=== PATIENT | female | born 1975 | race Caucasian/White ===

== ENCOUNTER 2017-08-25 22:55 | Emergency (ER) | payer OTHER ==
[~2017-08-25] VITALS: Ht 170.2 cm; Wt 71.2 kg
[2017-08-25 23:02] VITALS: TEMP 36.4; Ht 170.2 cm; Wt 71.2 kg
[2017-08-25] MEDS ORDERED: KETOROLAC TROMETHAMINE 30 MG/ML VIAL IV STA (23:07)
[2017-08-25 23:13] VITALS: O2SAT 99
[2017-08-25 23:43] LABS: BASO % 0.9 %; BASO ABS # 0.07 K/uL (0-0.2); COMPLETE YES; EOS % 1.7 %; HEMATOCRIT 36.2 % (37-47); IG% 0.3 %; LYMPH % 30.9 %; LYMPH ABS # 2.32 K/uL (1.2-3.4); MEAN CELL VOLUME 85.4 fL (80-100); MEAN CORPUSCULAR HEMOGLOBIN 27.8 pg (25-34); MEAN CORPUSCULAR HGB CONC 32.6 g/dl (32-36); MEAN PLATELET VOLUME 9.6 fL (7.4-10.4); MONO % 10.6 %; NEUT % 55.6 %; PLATELET COUNT 282 K/uL (130-400); RED BLOOD COUNT 4.24 M/uL (4.2-5.4); WHITE BLOOD COUNT 7.52 K/uL (4.8-10.8)
[2017-08-25 23:46] LABS: URINE APPEARANCE CLEAR (CLEAR); URINE BILIRUBIN NEG (NEG); URINE COLOR YELLOW; URINE NITRITE NEG (NEG); URINE SPECIFIC GRAVITY 1.019 (1.000-1.030); UROBILINOGEN NEG (NEG); ZZUR CULT IF INDIC CLEAN CATCH NO
[2017-08-25 23:50] LABS: MANUAL MICROSCOPIC REQUIRED? NO; REVIEW REQ? NO
[2017-08-26 00:10] LABS: ALB/GLOB RATIO 0.9 (0.9-2); ALKALINE PHOSPHATASE 55 U/L (45-117); ALT/SGPT 18 U/L (12-78); BLOOD UREA NITROGEN 16 mg/dl (7-18); BUN/CREATININE RATIO 16.5 (10-20); CALCIUM 8.3 mg/dl (8.5-10.1); CARBON DIOXIDE 25 mmol/L (21-32); CHLORIDE 107 mmol/L (98-107); GLUCOSE 79 mg/dl (70-99); SODIUM 137 mmol/L (136-145)
[2017-08-26 00:15] LABS: PREG INTERNAL NEGATIVE QC NEG CLEAR BACKGROUND; PREG INTERNAL POSITIVE QC POS CONTROL LINE
[2017-08-26] MEDS ORDERED: CEPH500C PO (01:57)
[2017-08-26] MEDS ORDERED: CEPHALEXIN 500MG HOME PACK 1 EA BTL PO ONE (02:00)
--- NOTE | 2017-08-26 02:01 | EMERGENCY ROOM VISIT NOTE ---
History First contact with patient: 23:02 Chief Complaint: PELVIC PAIN Stated Complaint: FEMALE PAIN AND BLEEDING History of Present Illness The patient is a 42 year old female who presents to the Emergency Room with complaints of light vaginal bleeding since IUD was placed Jun [address] [place]. Patient saw her DIRECTOR OF ONLINE MERCHANDISING doctor today and she cauterized a polyp on her cervix as she thought this what was causing her spotting. Patient states she's been having increasing pelvic pain for the past few days and noticed a bulge to her right inguinal area. Pain currently 7 out of 10. Nothing makes it better or worse. It does not radiate. no injury to the area. Patient complains of pain and discomfort to her vaginal area. Patient is unsure about possible risk for STI's. Patient denies chest pain, dyspnea, urinary frequency, urgency, dysuria, fever, chills, back pain. Review of Systems See HPI for pertinent positives & negatives. A total of 10 systems reviewed and were otherwise negative. Past Medical/Surgical History Orthopedic surgery Social History Smoking Status: Never Smoker Drug Use: none Marital Status: single Occupation Status: employed Current/Historical Medications Scheduled Cephalexin Monohydrate (Keflex), 500 MG PO QID Physical Exam Vital Signs Date Time Temp Pulse Resp B/P (MAP) Pulse Ox O2 Delivery O2 Flow Rate FiO2 08/26/17 01:05 78 18 115/59 99 Room Air 08/25/17 23:13 99 Room Air 08/25/17 23:02 36.4 77 16 121/74 99 Room Air Physical Exam VITALS: Vitals are noted on the nurse's note and reviewed by myself. Vital signs stable. GENERAL: pleasant female, in no acute distress, nondiaphoretic, well-developed well-nourished. SKIN: Capillary reflex less than 2 seconds. HEENT: Normocephalic. PERRLA. EOMI. Nares patent. Mucous membranes moist. Neck is supple without nuchal rigidity. HEART: Regular rate and rhythm without murmurs gallops or rubs. LUNGS: Clear to auscultation bilaterally without wheezes, rales or rhonchi. No retractions or accessory muscle use. ABDOMEN: Positive bowel sounds x 4. Normal tympanic percussion. Soft, nontender, without masses or organomegaly. Samano sign negative. No guarding or rebound tenderness. no CVA tenderness Exam: right inguinal lymph node enlargement, normal external female genitalia , IUD string visualized, no CMT or adnexal tenderness. Cultures taken and sent. Digital Media Associate present MUSCULOSKELETAL: No gross musculoskeletal defects. No pedal edema. No calf tenderness. NEURO: Patient was alert and oriented to person place and time. Normal sensation to light and sharp touch. No focal neurological deficits. Medical Decision & Procedures Laboratory Results 08/25/17 23:30 Red Blood Count 4.24, Mean Corpuscular Volume 85.4, Mean Corpuscular Hemoglobin 27.8, Mean Corpuscular Hemoglobin Concent 32.6, Mean Platelet Volume 9.6, Neutrophils (%) (Auto) 55.6, Lymphocytes (%) (Auto) 30.9, Monocytes (%) (Auto) 10.6, Eosinophils (%) (Auto) 1.7, Basophils (%) (Auto) 0.9, Neutrophils # (Auto ) 4.18, Lymphocytes # (Auto) 2.32, Monocytes # (Auto) 0.80, Eosinophils # (Auto ) 0.13, Basophils # (Auto) 0.07 08/25/17 23:30 Test 08/25/17 23:30 08/26/17 00:28 White Blood Count 7.52 K/uL (4.8-10.8) Red Blood Count 4.24 M/uL (4.2-5.4) Hemoglobin 11.8 g/dL (12.0-16.0) Hematocrit 36.2 % (37-47) Mean Corpuscular Volume 85.4 fL (80-100) Mean Corpuscular Hemoglobin 27.8 pg (25-34) Mean Corpuscular Hemoglobin Concent 32.6 g/dl (32-36) Platelet Count 282 K/uL (130-400) Mean Platelet Volume 9.6 fL (7.4-10.4) Neutrophils (%) (Auto) 55.6 % Lymphocytes (%) (Auto) 30.9 % Monocytes (%) (Auto) 10.6 % Eosinophils (%) (Auto) 1.7 % Basophils (%) (Auto) 0.9 % Neutrophils # (Auto) 4.18 K/uL (1.4-6.5) Lymphocytes # (Auto) 2.32 K/uL (1.2-3.4) Monocytes # (Auto) 0.80 K/uL (0.11-0.59) Eosinophils # (Auto) 0.13 K/uL (0-0.5) Basophils # (Auto) 0.07 K/uL (0-0.2) RDW Standard Deviation 47.3 fL (36.4-46.3) RDW Coefficient of Variation 15.1 % (11.5-14.5) Immature Granulocyte % (Auto) 0.3 % Immature Granulocyte # (Auto) 0.02 K/uL (0.00-0.02) Urine Color YELLOW Urine Appearance CLEAR (CLEAR) Urine pH 5.0 (4.5-7.5) Urine Specific [place] 1.019 (1.000-1.030) Urine Protein NEG (NEG) Urine Glucose (UA) NEG (NEG) Urine Ketones NEG (NEG) Urine Occult Blood 2+ (NEG) Urine Nitrite NEG (NEG) Urine Bilirubin NEG (NEG) Urine Urobilinogen NEG (NEG) Urine Leukocyte Esterase SMALL (NEG) Urine WBC (Auto) 5-10 /hpf (0-5) Urine RBC (Auto) 10-30 /hpf (0-4) Urine Hyaline Casts (Auto) 1-5 /lpf (0-5) Urine Epithelial Cells (Auto) 10-20 /lpf (0-5) Urine Bacteria (Auto) NEG (NEG) Anion Gap 5.0 mmol/L (3-11) Est Creatinine Clear Calc Drug Dose 70.6 ml/min Estimated GFR () 79.9 Estimated GFR (Non- 69.0 BUN/Creatinine Ratio 16.5 (10-20) Calcium Level 8.3 mg/dl (8.5-10.1) Total Bilirubin 0.3 mg/dl (0.2-1) Aspartate Amino Transf (AST/SGOT) U/L (15-37) Alanine Aminotransferase (ALT/SGPT) 18 U/L (12-78) Alkaline Phosphatase 55 U/L (45-117) Total Protein 7.7 gm/dl (6.4-8.2) Albumin 3.7 gm/dl (3.4-5.0) Globulin 4.0 gm/dl (2.5-4.0) Albumin/Globulin Ratio 0.9 (0.9-2) Human Chorionic Gonadotropin, Qual NEG (NEG) Date/Time Source Procedure Growth Status 08/26/17 00:28 Cervix Swab Trichomonas Preparation - Final Complete Medications Administered Medications (Trade) Dose Ordered Sig/[facility] Route Start Time Stop Time Status Last Admin Dose Admin Ketorolac Tromethamine (Toradol Inj) 30 mg NOW STAT IV 08/25/17 23:07 08/25/17 23:10 DC 08/25/17 23:07 30 MG ED Course Prior records/ancillary studies reviewed. Triage Nursing notes reviewed. The patient's history was concerning for vaginal bleeding and abdominal pain. Differential diagnosis: Etiologies such as IUD complication, STI, ectopic , dysfunction uterine bleeding, bleeding dyscrasia, trauma, infection, as well as others were entertained. Physical examination: As above. Vitals signs revealed stable. ER treatment provided: toradol On reassessment the patient felt better. Diagnostic interpretation by me: The labs revealed mild anemia. Negative hCG. Urinalysis revealed no sign of infection. Vaginal cultures pending Imaging studies: Ultrasound shows IUD within the uterus and appears appropriate. Normal ovaries with blood flow. Limited abdominal ultrasound shows prominent lymph nodes. This appears to be consistent with pelvic pain since the IUD placement and is getting progressively worse with right inguinal lymph node enlargement. Patient was strongly encouraged to follow back up with her DIRECTOR OF ONLINE MERCHANDISING for her ongoing symptoms and possible removal of the IUD. Patient was started on antibiotics for the enlarged lymph node. Patient had no overt signs of STIs. Gram stain was negative for clue cells. Negative for trichomonas. GC chlamydia pending. Patient was advised to return to the ER immediately for severe pain, fevers, vomiting, worsening signs or symptoms or as needed. Patient did not have acute abdomen on exam. She is well-appearing. By the evaluation outlined above emergent etiologies such as bleeding dyscrasia, ectopic , trauma, as well as others were deemed relatively unlikely. The pt informed about the findings as listed above. All questions were answered and pleased with the treatment. Return instructions were outlined and the patient was discharged in stable condition. Outpatient prescription management: Keflex Referral: The patient was referred to her employee communications manager for follow-up in 2 to 3 days for a recheck of her current condition. Case reviewed with my Attending. Medical Decision as above Medication Reconcilliation Current Medication List: was personally reviewed by me Blood Pressure Screening Patient's blood pressure: Normal blood pressure Impression Primary Impression: Inguinal lymphadenopathy Additional Impressions: Pelvic pain Anemia Departure Information Prescriptions Cephalexin Monohydrate (Keflex) 500 Mg Cap 500 MG PO QID for 9 Days, #36 CAP Prov: Mirtha Garcia ., PATaneshaC 08/26/17 Referrals No Doctor, Assigned (PCP) Patient Instructions My [facility] Problem Qualifiers
[2017-08-26 02:08] VITALS: BP 111/66; PULSE 70; O2SAT 100
--- NOTE | 2017-08-26 06:46 | DIAGNOSTIC IMAGING REPORT ---
EXAMINATION: PELVIC ULTRASOUND (transabdominal and endovaginal scanning) CLINICAL HISTORY: pain/bleeding, IUD placed COMPARISON STUDY: FINDINGS: The uterus measured 10.2 x 5.5 x 6.3 cm. The endometrial stripe measured 9 mm. An IUD is visualized in the endometrial cavity. There is slight heterogeneity in uterine echotexture. Nabothian gland cyst is visualized.. The right ovary measured 30 x 11 x 12 mm. The left ovary measured 35 x 22 x 24 mm.. There is no ultrasonographic evidence of ovarian torsion. It should be noted that ovarian torsion can be present with normal Doppler ultrasonographic findings. There was no evidence of pathologic free pelvic fluid. IMPRESSION: 1. Slight heterogeneity in myometrial echotexture without evidence of focal mass 2. IUD within the endometrial cavity 3. No pathologic ovarian lesions identified Electronically signed by: Dontrell Saucedo M.D. 08/26/2017 6:45 AM Dictated Date/Time: 08/26/2017 6:43 AM
--- NOTE | 2017-08-26 07:01 | DIAGNOSTIC IMAGING REPORT ---
RIGHT INGUINAL ULTRASOUND HISTORY: Right lower quadrant pain and swelling. COMPARISON: None. FINDINGS: Sonography at site of palpable lump within the right groin demonstrated 2 morphologically benign right inguinal lymph nodes. The largest node measured 2.9 x 1.3 x 2.3 cm. IMPRESSION: Two prominent but morphologically benign right inguinal lymph nodes. Electronically signed by: Christian Davila M.D. 08/26/2017 7:00 AM Dictated Date/Time: 08/26/2017 6:56 AM
[2017-08-28 03:08] LABS: CHLAMYDIA TRACH RNA*** NOT DETECTED (NOT DETECTED); GC (NEIS GONORRHOEAE)RNA** NOT DETECTED (NOT DETECTED)
== END 2017-08-26 02:09 | disposition home or self-care (01) ==
LOC: C.EDB 22:56 → C.EDC 08-26 02:09
DX: R59.0 Localized enlarged lymph nodes (principal); D64.9 Anemia, unspecified; Z97.5 Presence of (intrauterine) contraceptive device; Z98.890 Other specified postprocedural states

== ENCOUNTER → 2017-10-16 | Outpatient (CLI) | payer OTHER | END | disposition home or self-care (01) | LOC: C.LABSPEC 11:11 | PROVIDERS: ATTEND Physician Assistant | DX: N89.8 Other specified noninflammatory disorders of vagina (principal) ==

== ENCOUNTER → 2017-11-10 | Outpatient (CLI) | payer OTHER | END | disposition home or self-care (01) | LOC: C.LABSPEC 17:32 | PROVIDERS: ATTEND Obstetrics & Gynecology | DX: N89.8 Other specified noninflammatory disorders of vagina (principal) ==

== ENCOUNTER → 2017-12-11 | Outpatient (CLI) | payer OTHER ==
[~2017-12-11] MED LIST: CEFD1CAP14 PO; DOXY100C PO; IBUP-1050 PO
--- NOTE | 2017-12-11 11:18 | DIAGNOSTIC IMAGING REPORT ---
LEFT FOOT 3 VIEWS CLINICAL HISTORY: Left foot pain. FINDINGS: 3 views of the left foot are obtained. No prior studies are available for comparison at the time of dictation. The skeletal structures are well mineralized. No fracture is seen. The joint spaces of the foot are well-maintained. A small os naviculari is incidentally noted. There is a plantar calcaneal enthesophyte. An os trigonum is also identified. The overlying soft tissues are within normal limits. IMPRESSION: No acute bony abnormality is identified in the left foot. Electronically signed by: Flip Gibson M.D. 12/11/2017 11:16 AM Dictated Date/Time: 12/11/2017 11:15 AM
== END | disposition home or self-care (01) ==
LOC: C.RAD1850 10:39
PROVIDERS: ATTEND Physician Assistant
DX: M79.672 Pain in left foot (principal)

== ENCOUNTER 2017-12-14 19:41 | Emergency (ER) | payer OTHER ==
[~2017-12-14] VITALS: Ht 170.2 cm; Wt 69.4 kg
[2017-12-14 20:09] VITALS: TEMP 36.8; Ht 170.2 cm; Wt 69.4 kg
[2017-12-14 20:33] LABS: BASO % 0.6 %; BASO ABS # 0.03 K/uL (0-0.2); EOS % 1.5 %; EOS ABS # 0.08 K/uL (0-0.5); HEMATOCRIT 39.5 % (37-47); HEMOGLOBIN 13.1 g/dL (12.0-16.0); IG# 0.01 K/uL (0.00-0.02); LYMPH % 41.8 %; LYMPH ABS # 2.26 K/uL (1.2-3.4); MEAN CELL VOLUME 88.2 fL (80-100); MEAN CORPUSCULAR HEMOGLOBIN 29.2 pg (25-34); MEAN CORPUSCULAR HGB CONC 33.2 g/dl (32-36); MEAN PLATELET VOLUME 9.5 fL (7.4-10.4); MONO % 7.9 %; MONO ABS # 0.43 K/uL (0.11-0.59); PLATELET COUNT 270 K/uL (130-400); RED CELL DISTRIBUTION WIDTH CV 14.1 % (11.5-14.5); RED CELL DISTRIBUTION WIDTH SD 46.2 fL (36.4-46.3); WHITE BLOOD COUNT 5.41 K/uL (4.8-10.8)
[2017-12-14 20:54] LABS: ALBUMIN 3.8 gm/dl (3.4-5.0); CALCIUM 8.5 mg/dl (8.5-10.1); CREATININE 0.88 mg/dl (0.60-1.20); POTASSIUM 3.8 mmol/L (3.5-5.1)
[2017-12-14 20:57] LABS: TOTAL PROTEIN 6.8 gm/dl (6.4-8.2)
[2017-12-14] MEDS ORDERED: SODIUM CHLORIDE 0.9% 1000ML 1,000 ML IV STA (22:02)
--- NOTE | 2017-12-14 22:07 | EMERGENCY ROOM VISIT NOTE ---
History Report prepared by Segun: Leo Samuel Under the Supervision of: Dr. Adam Wagner M.D. First contact with patient: 21:53 Chief Complaint: REFERRED BY DOCTOR Stated Complaint: BACK PAIN,RECURRING INFECTION History of Present Illness The patient is a 42 year old female who presents to the Emergency Room with pelvic pain. Worsening last few days. Associated with right groin pain and low back discomfort. Notes fatigue, mild headache, low grade fevers, nausea, lack of appetite. Just started period thus some mild vaginal bleeding. This is first menstrual cycle since Aug [address], removed and then given Depo shot. She has had 3 similar episode over last few months which responded quickly to abx though periodically return. She is an active person and notes this has significantly decreased her ability to be active. no medications taken for this recently. on no current abx. No syncope, leg swelling, cp, sob , rashes, vomiting, nor other symptoms. Follows with Railroad Track Inspector for this and unclear etiology of problems. Source of History: patient Onset: 5 months ago Position: pelvis Symptom Intensity: pain rated as 8/10 Timing: worsening Modifying Factors (Relieving): other (Ibuprofen) Associated Symptoms: + fevers, + headache, + nausea, + back pain, No vomiting Review of Systems See HPI for pertinent positives & negatives. A total of 10 systems reviewed and were otherwise negative. Family History FHx: diabetes mellitus Social History Smoking Status: Never Smoker Alcohol Use: occasionally Drug Use: none Marital Status: single Occupation Status: employed Current/Historical Medications Scheduled Cefdinir (Omnicef), 300 MG PO Q12H Doxycycline Hyclate (Vibramycin), 100 MG PO BID Scheduled PRN Ibuprofen (Advil), 200-600 MG PO Q4H PRN for Pain Allergies Coded Allergies: Sulfa Antibiotics (Verified Allergy, Severe, ANAPHYLAXIS, 12/14/17) Physical Exam Vital Signs Date Time Temp Pulse Resp B/P (MAP) Pulse Ox O2 Delivery O2 Flow Rate FiO2 12/15/17 00:30 72 18 105/73 97 12/15/17 00:16 74 98 12/15/17 00:11 73 97 12/15/17 00:00 111/71 12/14/17 23:41 73 18 98 12/14/17 23:30 116/76 12/14/17 23:11 72 98 12/14/17 23:09 119/69 12/14/17 22:18 65 20 133/73 98 Room Air 12/14/17 20:09 36.8 69 18 111/70 100 Room Air Physical Exam GENERAL: Patient is tired appearing and in minimal distress. EYES: No scleral icterus, unremarkable pupils. ENT: Mucous membranes moist, no nasal congestion. NECK: No masses appreciated, no meningismus, trachea is midline. RESPIRATORY: No dyspnea. Clear to auscultation and equal bilaterally. No wheeze , no rhonchi. CARDIOVASCULAR: Regular rate and rhythm. No murmurs, rubs, gallops appreciated. GASTROINTESTINAL: Mild super pubic tenderness to palpation. Vague tenderness of right inguinal canal. Abdomen soft, no peritonitis. Bowel sounds positive. No masses appreciated. BACK: No midline tenderness, no CVA tenderness EXTREMITIES: Normal motion all extremities, no cyanosis, no edema. NEUROLOGIC: Alert and oriented, no acute motor or sensory deficits, no focal weakness, cranial nerves grossly intact. SKIN: No rash, no jaundice, no diaphoresis. Medical Decision & Procedures ER Provider Diagnostic Interpretation: Radiology results and stated below per my review and radiologist interpretation: CT SCAN OF THE PELVIS WITH IV CONTRAST CLINICAL HISTORY: Right inguinal swelling. COMPARISON STUDY: Pelvic ultrasound dated 08/25/2017. TECHNIQUE: Following the IV administration of 119 cc of Optiray 320, CT scan of the pelvis is performed from the pelvic inlet to the proximal femora. Images are reviewed in the axial, sagittal, and coronal planes. IV contrast was administered without complication. A dose lowering technique was utilized adhering to the principles of ALARA. CT DOSE: 674.27 mGy.cm FINDINGS: The bladder is decompressed and grossly unremarkable. The uterus appears enlarged and heterogeneous. The ovaries are normal as visualized, noting bilateral follicles. Trace free fluid is seen in the cul-de-sac. There is no pelvic sidewall or inguinal lymphadenopathy. There is no CT evidence of inguinal hernia. The iliac vessels are patent bilaterally. The visualized bowel loops are normal in caliber. A normal appendix is identified. The bony pelvis is intact. No lytic or blastic lesion is identified. IMPRESSION: 1. No acute abnormality is identified in the pelvis. 2. There is no CT evidence of right inguinal hernia or lymphadenopathy. 3. The uterus appears mildly enlarged and heterogeneous. This was also seen by ultrasound on 08/25/2017. Follow-up with the patient's sfdc developer is recommended. 4. Trace free fluid in the cul-de-sac is likely within physiologic limits. Dictated: 12/14/2017 10:32 PM Transcribed: 12/14/2017 11:04 PM JOSE_Tien Laboratory Results 12/14/17 20:13 Red Blood Count 4.48, Mean Corpuscular Volume 88.2, Mean Corpuscular Hemoglobin 29.2, Mean Corpuscular Hemoglobin Concent 33.2, Mean Platelet Volume 9.5, Neutrophils (%) (Auto) 48.0, Lymphocytes (%) (Auto) 41.8, Monocytes (%) (Auto) 7.9, Eosinophils (%) (Auto) 1.5, Basophils (%) (Auto) 0.6, Neutrophils # (Auto) 2.60, Lymphocytes # (Auto) 2.26, Monocytes # (Auto) 0.43, Eosinophils # (Auto) 0.08, Basophils # (Auto) 0.03 12/14/17 20:13 Test 12/14/17 20:13 12/14/17 22:02 12/14/17 22:10 White Blood Count 5.41 K/uL (4.8-10.8) Red Blood Count 4.48 M/uL (4.2-5.4) Hemoglobin 13.1 g/dL (12.0-16.0) Hematocrit 39.5 % (37-47) Mean Corpuscular Volume 88.2 fL (80-100) Mean Corpuscular Hemoglobin 29.2 pg (25-34) Mean Corpuscular Hemoglobin Concent 33.2 g/dl (32-36) Platelet Count 270 K/uL (130-400) Mean Platelet Volume 9.5 fL (7.4-10.4) Neutrophils (%) (Auto) 48.0 % Lymphocytes (%) (Auto) 41.8 % Monocytes (%) (Auto) 7.9 % Eosinophils (%) (Auto) 1.5 % Basophils (%) (Auto) 0.6 % Neutrophils # (Auto) 2.60 K/uL (1.4-6.5) Lymphocytes # (Auto) 2.26 K/uL (1.2-3.4) Monocytes # (Auto) 0.43 K/uL (0.11-0.59) Eosinophils # (Auto) 0.08 K/uL (0-0.5) Basophils # (Auto) 0.03 K/uL (0-0.2) RDW Standard Deviation 46.2 fL (36.4-46.3) RDW Coefficient of Variation 14.1 % (11.5-14.5) Immature Granulocyte % (Auto) 0.2 % Immature Granulocyte # (Auto) 0.01 K/uL (0.00-0.02) Anion Gap 8.0 mmol/L (3-11) Est Creatinine Clear Calc Drug Dose 80.2 ml/min Estimated GFR () 93.3 Estimated GFR (Non- 80.5 BUN/Creatinine Ratio 12.1 (10-20) Calcium Level 8.5 mg/dl (8.5-10.1) Total Bilirubin 0.4 mg/dl (0.2-1) Aspartate Amino Transf (AST/SGOT) 11 U/L (15-37) Alanine Aminotransferase (ALT/SGPT) 16 U/L (12-78) Alkaline Phosphatase 42 U/L (45-117) Total Protein 6.8 gm/dl (6.4-8.2) Albumin 3.8 gm/dl (3.4-5.0) Globulin 3.0 gm/dl (2.5-4.0) Albumin/Globulin Ratio 1.3 (0.9-2) Lipase 188 U/L (73-393) Bedside Urine Test NEG (NEG) Urine Color YELLOW Urine Appearance TURBID (CLEAR) Urine pH 6.0 (4.5-7.5) Urine Specific [place] 1.010 (1.000-1.030) Urine Protein NEG (NEG) Urine Glucose (UA) NEG (NEG) Urine Ketones NEG (NEG) Urine Occult Blood 3+ (NEG) Urine Nitrite NEG (NEG) Urine Bilirubin NEG (NEG) Urine Urobilinogen NEG (NEG) Urine Leukocyte Esterase TRACE (NEG) Urine RBC 0-4 /hpf (0-4) Urine WBC 10-30 /hpf (0-5) Urine Epithelial Cells 10-20 /lpf (0-5) Urine Bacteria 1+ (NEG) Laboratory results as reviewed by me. Medications Administered Medications (Trade) Dose Ordered Sig/[facility] Route Start Time Stop Time Status Last Admin Dose Admin Sodium Chloride 1,000 ml @ 999 mls/hr Q1H1M STAT IV 12/14/17 22:02 12/14/17 23:02 DC 12/14/17 22:32 999 MLS/HR Ceftriaxone Sodium (Rocephin Inj) 1 gm NOW STAT IV 12/14/17 23:25 12/14/17 23:26 DC 12/14/17 23:55 1 GM Doxycycline Hyclate (Vibramycin Cap) 100 mg ONE ONCE PO 12/14/17 23:30 12/14/17 23:31 DC 12/14/17 23:54 100 MG ED Course 2153: The patient was evaluated in room C10. A complete history and physical exam was performed. 2315: I checked on the patient and she is resting. 2338: Discussed the patient's case with Dr. Rogers and he advised followup with outpatient clinic. 0045: Reevaluated the patient. Discussed results and discharge instructions: She verbalized understanding and agreement. The patient is ready for discharge. Medical Decision Differential: Appendicitis, Ovarian Torsion, PID, Tubo-ovarian Abscess, Intrauterine , Ectopic , Endometriosis, amongst other pathologies entertained. 42 yr old female with pelvic and right inguinal pain on and off last 4 months post IUD placement (and subsequent removal). Not affiliated with menstraul cycle and first period was just this last few days (depo shot) and this is 4th episode of symptoms. She has no fevers, wbc elevation nor evidence of sepsis but does have some systemic symptoms from this pain. As no previous imaging other than pelvic us went ahead with ct pelvis revealing no masses, abscess, nor other pelvic issue beyond heterogeneous uterus which may just be related to cylce, though given discomfort PID/endometritis is a concern. Already has been on keflex, flagyl amongst another unknown abx. She has no tried doxy nor omnicef. Given IV rocephin and will plan on continuing doxy as an outpatient. Previous cultures with Gardnerella and strep b though these aren't likely cause of issues and I feel repeat pelvic exam is also no reasonable. Originally discussed dual abx therapy, but given risk of side effects we discussed doing just doxy for 10 days and seeing data analyst in mean time. Reviewed with Railroad Track Inspector who agree not a clear cut case of what is going on and she will follow up with them. Medication Reconcilliation Current Medication List: was personally reviewed by me Blood Pressure Screening Patient's blood pressure: Normal blood pressure Blood pressure disposition: Did not require urgent referral Impression Primary Impression: Pelvic pain Additional Impression: Right groin pain Scribe Attestation The scribe's documentation has been prepared under my direction and personally reviewed by me in its entirety. I confirm that the note above accurately reflects all work, treatment, procedures, and medical decision making performed by me. Departure Information Dispostion Home / Self-Care Prescriptions Doxycycline Hyclate (VIBRAMYCIN) 100 Mg Cap 100 MG PO BID for 10 Days, #20 CAP Prov: Adam Wagner M.D. 12/15/17 Cefdinir (Omnicef) 300 Mg Cap 300 MG PO Q12H for 10 Days, #20 CAP Prov: Adam Wagner M.D. 12/15/17 Referrals Lizette Rogers M.D.(SECURITY DISPATCHER/OB) Patient Instructions My [facility] Additional Instructions Return if fevers, vomiting, passing out, worsening pain or other concerns. We are always here to help. You have been examined and treated today on an emergency basis only. This is not a substitute for, or an effort to provide, complete comprehensive medical care. It is impossible to recognize and treat all injuries or illnesses in a single emergency department visit. It is therefore important that you follow up closely with your Primary Physician. Call as soon as possible for an appointment so you can review all labs, imaging and other testing that you had. Return to Emergency Department, call 911 or seek immediate medical attention if you feel your symptoms are worsening. Problem Qualifiers
[2017-12-14] MEDS ORDERED: OPTIRAY 320 IV PRN (22:30)
--- NOTE | 2017-12-14 23:04 | DIAGNOSTIC IMAGING REPORT ---
CT SCAN OF THE PELVIS WITH IV CONTRAST CLINICAL HISTORY: Right inguinal swelling. COMPARISON STUDY: Pelvic ultrasound dated 08/25/2017. TECHNIQUE: Following the IV administration of 119 cc of Optiray 320, CT scan of the pelvis is performed from the pelvic inlet to the proximal femora. Images are reviewed in the axial, sagittal, and coronal planes. IV contrast was administered without complication. A dose lowering technique was utilized adhering to the principles of ALARA. CT DOSE: 674.27 mGy.cm FINDINGS: The bladder is decompressed and grossly unremarkable. The uterus appears enlarged and heterogeneous. The ovaries are normal as visualized, noting bilateral follicles. Trace free fluid is seen in the cul-de-sac. There is no pelvic sidewall or inguinal lymphadenopathy. There is no CT evidence of inguinal hernia. The iliac vessels are patent bilaterally. The visualized bowel loops are normal in caliber. A normal appendix is identified. The bony pelvis is intact. No lytic or blastic lesion is identified. IMPRESSION: 1. No acute abnormality is identified in the pelvis. 2. There is no CT evidence of right inguinal hernia or lymphadenopathy. 3. The uterus appears mildly enlarged and heterogeneous. This was also seen by ultrasound on 08/25/2017. Follow-up with the patient's rotoformer backtender is recommended. 4. Trace free fluid in the cul-de-sac is likely within physiologic limits. Dictated: 12/14/2017 10:32 PM Transcribed: 12/14/2017 11:04 PM JOSE_Tien Electronically signed by: Flip Gibson M.D. 12/14/2017 11:06 PM Dictated Date/Time: 12/14/2017 10:32 PM
[2017-12-14] MEDS ORDERED: IBUP-1050 PO (23:07)
[2017-12-14] MEDS ORDERED: CEFTRIAXONE SOD INJ 1 GM ADDVIAL IV STA (23:25)
[2017-12-14] MEDS ORDERED: DOXYCYCLINE HYCLATE 100 MG CAP PO ONE (23:30)
[2017-12-15] MEDS ORDERED: CEFD1CAP14 PO (00:23)
[2017-12-15] MEDS ORDERED: DOXY100C PO (00:23)
[2017-12-15 00:30] VITALS: BP 105/73; PULSE 72; O2SAT 97
== END 2017-12-15 00:47 | disposition home or self-care (01) ==
LOC: C.EDB 19:42 → C.EDC 12-15 00:47
DX: R10.2 Pelvic and perineal pain (principal); R10.30 Lower abdominal pain, unspecified; Z88.2 Allergy status to sulfonamides

== ENCOUNTER 2018-01-04 15:51 | Inpatient (IN) | payer OTHER ==
[~2018-01-04] VITALS: Ht 171.4 cm; Wt 69.0 kg
[2018-01-04] MEDS ORDERED: NURSING VERBAL MED ORDER ONE ×2 (16:00→23:45)
--- NOTE | 2018-01-04 16:08 | HISTORY & PHYSICAL EXAMINATION ---
DATE OF ADMISSION: 01/04/2018 CHIEF COMPLAINT: Heavy vaginal bleeding with clotting, weakness, and dizziness on standing. HISTORY OF PRESENT ILLNESS: The patient is a 42-year-old 4, para 2. She has had 2 spontaneous ABs. She has had a 2-year long history of heavy vaginal bleeding with clotting. She was originally followed by some doctors in [place], [place]. They tried a Mirena IUD, which they inserted in July 2017 and it had to be removed in September 2017 due to complications with infection and continued bleeding. She had a transvaginal ultrasound in my office on 12/29/2017 which showed a fibroid about 2 cm impinging on the endometrial canal and she also had a generalized enlargement of the uterus which was suggestive of adenomyosis. She has been bleeding for a month; however, it just started to be heavy on 12/31/2017 and she began to soak a pad in under an hour, passing large clots. She tried decreasing her activity. By Thursday, she was having some dizziness and nausea on standing. She called the office. She was seen in the office. A speculum exam revealed heavy vaginal bleeding, clothes were soaked. She was passing large clots. I sent her over for an emergency hemoglobin and hematocrit. Her hemoglobin was 9.4, hematocrit was 26.9. We discussed options and she is going to be admitted for total abdominal hysterectomy with preservation of ovaries due to heavy vaginal bleeding and symptomatic anemia. PAST MEDICAL HISTORY: She has 2 children in good health. ALLERGIES: SHE HAS A SERIOUS ALLERGIC REACTION TO SULFA WHICH CAUSES SHORTNESS OF BREATH. PAST SURGICAL HISTORY: She had a D and E for one of her miscarriages and she had a vein removed in her leg. MEDICAL HISTORY: No history of rheumatic fever, heart disease, heart murmur, diabetes, tuberculosis. SOCIAL HISTORY: No smoking. No alcohol intake. Works at [employer]. FAMILY HISTORY: Mother 64, in good health. Father 64, in good health. She has got 2 sisters and 1 brother in good health. REVIEW OF SYSTEMS: She does get migraine headaches which are worse with this heavy vaginal bleeding. No history of frequent or severe ear infections. PHYSICAL EXAMINATION: GENERAL: A well-developed, well-nourished white female, pale and weak in appearance. HEART: Had a regular rhythm. CHEST: Clear to auscultation and percussion. BREAST EXAMINATION: Normal. ABDOMEN: Soft and nontender. PELVIC EXAMINATION: Revealed a top normal-sized uterus. Speculum exam revealed heavy vaginal bleeding with clotting, clothes soaked. MUSCULOSKELETAL EXAMINATION: Revealed no calf tenderness. IMPRESSIONS OF THIS CASE: Symptomatic anemia, fibroid uterus, suspected adenomyosis, and a long history of heavy vaginal bleeding unresponsive to conservative therapy.
[2018-01-04] MEDS ORDERED: LACTATED RINGER'S 1000ML 1,000 ML IV SCH ×2 (16:14→16:15)
[2018-01-04] MEDS ORDERED: CEFOXITIN IV 2,000 MG in DEXTROSE 5% 50ML 50 ML IV SCH (16:15)
[2018-01-04 16:20] VITALS: BP 115/75; PULSE 84; TEMP 36.6; O2SAT 100
[2018-01-04 16:25] VITALS: BP 115/75; PULSE 84; TEMP 36.6; O2SAT 100; Ht 171.4 cm; Wt 69.0 kg
[2018-01-04] MEDS ORDERED: PATIENT'S ALLERGY INFO NEEDS ENTERED SCH (16:30)
[2018-01-04] MEDS ORDERED: PATIENT'S HEIGHT AND/OR WEIGHT NEEDED SCH (16:30)
[2018-01-04] MEDS ORDERED: MIDAZOLAM HCL 1 MG/ML 2ML VIAL ONE (18:13)
[2018-01-04] MEDS ORDERED: PROPOFOL IV EMULSION 10 MG/ML 20 ML VIAL ONE (18:13)
[2018-01-04] MEDS ORDERED: ONDANSETRON INJ 2 MG/ML 2 ML VIAL ONE ×3 (18:13→21:40)
[2018-01-04] MEDS ORDERED: ROCURONIUM BROMIDE 10 MG/ML 5 ML VIAL ONE (18:13)
[2018-01-04] MEDS ORDERED: LIDOCAINE HCL 2% 2 ML VIAL (20MG/ML) ONE ×2 (18:13→19:26)
[2018-01-04] MEDS ORDERED: FENTANYL CITRATE INJ 50 MCG/1 ML 2 ML VIAL ONE ×2 (18:13→21:13)
[2018-01-04] MEDS ORDERED: LARYING-O-JET KIT (LTA) ONE ×2 (18:13→19:06)
[2018-01-04] MEDS ORDERED: NEOSTIGMINE METHYLSULFATE 5 MG/5 ML SYR ONE (18:13)
[2018-01-04] MEDS ORDERED: PHENYLEPHRINE 100MCG/ML 5ML SYR ONE ×3 (18:13→19:44)
[2018-01-04] MEDS ORDERED: EpHEDrine SULFATE 50MG/5ML SYR ONE (18:13)
[2018-01-04] MEDS ORDERED: DEXAMETHASONE SOD INJ 4 MG/ML VIAL ONE ×2 (18:13→19:27)
[2018-01-04] MEDS ORDERED: GLYCOPYRROLATE INJ 0.2 MG/ML VIAL ONE (18:13)
[2018-01-04] MEDS ORDERED: HEPARIN SOD (PORCINE) 1000 UNIT/ML 10 ML VIAL ONE (18:47)
[2018-01-04] MEDS ORDERED: EpHEDrine SULFATE INJ 50 MG/ML AMP IV PRN (19:45)
[2018-01-04] MEDS ORDERED: ATROPINE SULFATE 0.1 MG/ML 5ML SYR IV PRN (19:45)
[2018-01-04] MEDS ORDERED: PHENYLEPHRINE 100MCG/ML 5ML SYR IV PRN (19:45)
[2018-01-04] MEDS ORDERED: MoRPHine SULFATE 10 MG/ML CARP/VIAL IV PRN (19:45)
[2018-01-04] MEDS ORDERED: ONDANSETRON INJ 2 MG/ML 2 ML VIAL IV PRN (19:45)
[2018-01-04] MEDS ORDERED: FLUMAZENIL 0.1 MG/1 ML 10 ML VIAL IV PRN (19:45)
[2018-01-04] MEDS ORDERED: HYDROmorphone INJ 2 MG/ML SYR/VIAL ONE ×3 (19:45→21:49)
[2018-01-04] MEDS ORDERED: LABETALOL HCL IV 5 MG/ML 20ML IV PRN (19:45)
[2018-01-04] MEDS ORDERED: MEPERIDINE HCL 25 MG/ML CARP IV PRN (19:45)
[2018-01-04] MEDS ORDERED: HYDROmorphone INJ 0.5 MG/0.5 ML SYR IV PRN (19:45)
[2018-01-04] MEDS ORDERED: NALOXONE HCL 0.4 MG/1 ML VIAL/CARP IV PRN (19:45)
[2018-01-04] MEDS ORDERED: ESMOLOL HCL 10 MG/ML 10 ML VIAL ONE (19:58)
[2018-01-04] MEDS ORDERED: KETOROLAC TROMETHAMINE 30 MG/ML VIAL ONE (20:42)
--- NOTE | 2018-01-04 21:08 | [facility] Post Operative Brief Note ---
Immediate Operative Summary Operative Date Jan 04, 2018. Pre-Operative Diagnosis Symptomatic anemia, fibroid uterus, suspected adenomyosis Post-Operative Diagnosis Endometriosis, Adenomyosis, Fibroid Procedure(s) Performed Total Abdominal Hysterectomy Surgeon Dr. Burnett Senior Specialist Surgeon(s) Dr. May Estimated Blood Loss 160cc Findings Consistent with Post-Op Diagnosis Fluids (cc crystalloids) 1800 ml Specimens A. Uterus and cervix Drains jone drain with safety pin in vaginal cuff Anesthesia Type General Complication(s) none Disposition Disposition: Surgical ICU
[2018-01-04] MEDS ORDERED: MEPERIDINE HCL 50 MG/ML CARP IV PRN ×2 (21:30)
[2018-01-04] MEDS ORDERED: SENNA 8.6 MG TAB PO PRN (21:30)
[2018-01-04] MEDS ORDERED: MAGNESIUM HYDROXIDE SUSP 30 ML UDC PO PRN (21:30)
[2018-01-04] MEDS ORDERED: BISACODYL 10 MG SUPP PR PRN (21:30)
--- NOTE | 2018-01-04 21:55 | Anesthesiology Progress Note ---
Anesthesia Post Op Note Date & Time Jan 04, 2018 at 21:54 Vital Signs Pain Intensity: 5 Vital Signs Past 12 Hours Date Time Temp Pulse Resp B/P (MAP) Pulse Ox O2 Delivery O2 Flow Rate FiO2 01/04/18 21:46 68 9 113/61 100 01/04/18 21:46 68 9 01/04/18 21:41 73 21 01/04/18 21:41 73 21 106/58 99 01/04/18 21:37 124/53 01/04/18 21:36 76 13 01/04/18 21:36 76 13 100 01/04/18 21:31 88 11 138/75 99 01/04/18 21:31 87 11 01/04/18 21:29 36.7 75 16 108/60 (79) 96 Oxymask 10 01/04/18 21:26 84 15 133/77 100 01/04/18 21:26 85 15 01/04/18 21:22 108/60 01/04/18 21:21 69 2 01/04/18 21:21 68 2 84 01/04/18 16:25 36.6 84 16 115/75 100 Room Air 01/04/18 16:20 36.6 84 115/75 (88) 100 Room Air 01/04/18 16:20 100 Room Air Notes Mental Status: alert / awake / arousable, participated in evaluation Pt Amnestic to Procedure: Yes Nausea / Vomiting: adequately controlled Pain: adequately controlled, improving with treatment Airway Patency, RR, SpO2: stable & adequate BP & HR: stable & adequate Hydration State: stable & adequate Anesthetic Complications: no major complications apparent The patient's postop hgb was 8.8.
[2018-01-04] MEDS ORDERED: MoRPHine SULFATE 10 MG/ML CARP/VIAL ONE (21:56)
[2018-01-04 22:35] VITALS: BP 106/50; PULSE 73; TEMP 36.5; O2SAT 98
[2018-01-04] MEDS: D5W AND LACTATED RINGERS 1,000 ML IV SCH (22:39)
[2018-01-04 23:05] VITALS: BP 106/59; TEMP 36.3; O2SAT 96
[2018-01-04 23:35] VITALS: BP 107/60; PULSE 78; TEMP 36.5; O2SAT 98
[2018-01-04] MEDS ORDERED: SCOPOLAMINE 1.5 MG TDSY TD SCH (23:45)
[2018-01-05] VITALS (23 sets, daily range): BP systolic 103–138; BP diastolic 61–74; PULSE 76–96; TEMP 36.4–38.2; O2SAT 96–100
[2018-01-05] MEDS: CHECK SCOPOLAMINE PATCH PLACEMENT SCH ×4 (00:15→23:07)
[2018-01-05] MEDS: ONDANSETRON INJ 2 MG/ML 2 ML VIAL IV PRN ×3 (01:10→08:55)
--- NOTE | 2018-01-05 01:40 | OPERATIVE REPORT ---
DATE OF OPERATION: 01/04/2018 PROCEDURE: This is an operative notation of a total abdominal hysterectomy with suspension of vaginal cuff. INDICATIONS FOR SURGERY: Prolonged heavy vaginal bleeding, symptomatic anemia. PREOPERATIVE DIAGNOSES: Adenomyosis, uterine fibroids and endometriosis. POSTOPERATIVE DIAGNOSIS: Same. Pathology pending. SURGEON: Mik Burnett MD VACUUM SYSTEM TESTER: Dr. May. ESTIMATED BLOOD LOSS: 150 mL. ANESTHESIA: General. OPERATIVE FINDINGS AND PROCEDURE: The patient was brought to the OR table, correctly identified by armband and conversation. General anesthesia was administered. Then after the administration of general anesthesia, perineum and vagina were painted with Betadine paint. There was a lot of clotted blood coming out of the vagina. Compression stockings were applied. A Yu catheter was inserted into the bladder, connected to gravity drainage. Lower abdomen and upper thighs were painted with an alcohol based sterilizing solution then and a Pfannenstiel incision was made, carried down to the anterior fascia by sharp dissection. Hemostasis was secured by electrocauterization. Fascia was incised transversely from underlying muscle by blunt and sharp dissection. Recti muscles were in midline exposing peritoneum, which was carefully raised and entered. An O'Tonny-O'Omalley self-retraining retractor was inserted into the incision and several moist laparotomy packs were used to retract the intestines, provide adequate exposure of the pelvic cavity. The uterus was grasped with a double tooth tenaculum. It was enlarged consistent with about a 10 weeks' gestational size uterus. There was also some endometriosis in the left lateral pelvic wall. The round ligaments were clamped proximally, cut distally and then doubly ligated with silk ties and tagged. The posterior leaf of the broad ligament was punched through posteriorly on both the right and left side and then the adnexa were doubly ligated with silk ties and then tagged and cut free. The incision was then made above the vesicouterine fold. Bladder was advanced out of the operative field. Uterine vessels were skeletonized and then doubly clamped with curved John. We then cut them free from the uterus and doubly ligated the stumps with chromic pop off. This was done for both the right and left side. We then continued to advance the bladder out of the operative field slide off the cervix with the curved John, cut with a stump and ligated with a chromic gut suture. This was done in 3 steps because of the length of the cardinal ligament. I then used electrocautery to shell out the cervix, thus incising the surgical specimen consisting of uterus and cervix. I suture ligated the angles of the vaginal cuff to the stumps of the cardinal ligaments on both the right and left side and retied the stumps. At the same time, I then used a [id number] suture to approximate the vaginal cuff front to back and anchoring the proximal bites to the stumps of the cardinal ligaments on both the right and left side. I then whipstitched open the center then grabbed the cuff in the middle with the cuff clamp and then used a heavy duty Vicryl to approximate the uterosacral ligaments and help suspend the cuff and obliterate the cul-de-sac. Following this, the round ligaments were brought down and tied to the vaginal cuff for suspension and I reperitonealized the whole area by approximating the peritoneal edges, burying the stumps of the tube and ovarian ligament and anchoring the peritoneum to the round ligament. This further helped suspend the vaginal cuff. There was a little bit of bleeding on the patient's left side and I re-ligated the stumps of the ovary and tube. After hemostasis had been achieved and checked for several times, packs were removed. A [place] drain with a safety pin was placed in the open part of the cuff, safety pin in the vagina and the other end into the cul-de-sac. With the packs removed, hemostasis was good. We did a careful anatomical approximation of the anterior abdominal wall. Peritoneum was closed with a running mattress suture of chromic catgut. Recti muscles were approximately interrupted [id number] suture of chromic catgut. The fascia was closed with continuous interlocking suture of Vicryl on each side, tied in the midline. SubQ was approximated a running plain and skin edges were approximated with staple clips. I attest to the content of the Intraoperative Record and any orders documented therein. Any exception s are noted below.
[2018-01-05] MEDS: KETOROLAC TROMETHAMINE 30 MG/ML VIAL IV. PRN ×4 (01:41→21:17)
[2018-01-05] MEDS: D5W AND LACTATED RINGERS 1,000 ML IV SCH ×3 (06:47→21:18)
[2018-01-05 07:21] LABS: HEMATOCRIT 21.7 % (37-47); HEMOGLOBIN 7.4 g/dL (12.0-16.0); IG# 0.04 K/uL (0.00-0.02); LYMPH ABS # 0.57 K/uL (1.2-3.4); MEAN CELL VOLUME 87.9 fL (80-100); MEAN CORPUSCULAR HGB CONC 34.1 g/dl (32-36); MEAN PLATELET VOLUME 8.9 fL (7.4-10.4); MONO % 6.1 %; MONO ABS # 0.87 K/uL (0.11-0.59); NEUT % 89.6 %; NEUT ABS # 12.69 K/uL (1.4-6.5); PLATELET COUNT 187 K/uL (130-400); RED CELL DISTRIBUTION WIDTH CV 14.1 % (11.5-14.5); RED CELL DISTRIBUTION WIDTH SD 45.7 fL (36.4-46.3); WHITE BLOOD COUNT 14.17 K/uL (4.8-10.8)
--- NOTE | 2018-01-05 07:31 | Anesthesiology Progress Note ---
Anesthesia Post Op Note Date & Time January 05, 2018 at 07:29 Vital Signs Pain Intensity: 6.0 Vital Signs Past 12 Hours Date Time Temp Pulse Resp B/P (MAP) Pulse Ox O2 Delivery O2 Flow Rate FiO2 01/05/18 04:00 36.8 78 18 114/72 (86) 96 Room Air 01/05/18 02:41 99 Room Air 01/05/18 02:40 100 Nasal Cannula 1.0 01/05/18 01:36 98 Nasal Cannula 1.0 01/05/18 01:35 36.6 80 18 116/66 (83) 99 Nasal Cannula 1.5 01/05/18 00:36 96 Nasal Cannula 1.5 01/05/18 00:35 36.4 89 20 111/67 (82) 100 Nasal Cannula 2.0 01/04/18 23:35 36.5 78 20 107/60 (76) 98 Nasal Cannula 2.0 01/04/18 23:05 36.3 18 106/59 (75) 96 Nasal Cannula 2.0 01/04/18 23:05 96 Nasal Cannula 2.0 01/04/18 22:35 98 Nasal Cannula 2.0 01/04/18 22:35 36.5 73 16 106/50 (68) 98 Nasal Cannula 2.0 01/04/18 22:00 36.7 88 16 110/57 (70) 100 Nasal Cannula 2 01/04/18 21:46 68 9 113/61 100 01/04/18 21:46 68 9 01/04/18 21:41 73 21 01/04/18 21:41 73 21 106/58 99 01/04/18 21:37 124/53 01/04/18 21:36 76 13 01/04/18 21:36 76 13 100 01/04/18 21:31 88 11 138/75 99 01/04/18 21:31 87 11 01/04/18 21:29 36.7 75 16 108/60 (79) 96 Oxymask 10 01/04/18 21:26 84 15 133/77 100 01/04/18 21:26 85 15 01/04/18 21:22 108/60 01/04/18 21:21 69 2 01/04/18 21:21 68 2 84 Notes Mental Status: alert / awake / arousable Pt Amnestic to Procedure: Yes Nausea / Vomiting: see Notes Pain: see Notes Airway Patency, RR, SpO2: stable & adequate BP & HR: stable & adequate Hydration State: stable & adequate Anesthetic Complications: pt complained of severe post op nausea and vomiting; stated she had discussed having scopolamine patch but did not receive the patch prior to procedure. She states her nausea does improve with doses of zofran but comes back. She also states she woke up with severe pain that made the nausea worse.
--- NOTE | 2018-01-05 09:37 | Progress Note ---
Subjective January 05, 2018. Subjective conversation w/ patient Ambulation: limited ambulation Voiding: no voiding problems Passing Gas: No Diet Tolerance: Nausea/Vomiting Lochia: Small Review of Systems Constitutional: + fever Objective Vital Signs Date Time Temp Pulse Resp B/P (MAP) Pulse Ox O2 Delivery O2 Flow Rate FiO2 01/05/18 08:00 97 Room Air 01/05/18 08:00 37.0 82 16 107/62 (77) 97 Room Air 01/05/18 04:00 36.8 78 18 114/72 (86) 96 Room Air 01/05/18 02:41 99 Room Air 01/05/18 02:40 100 Nasal Cannula 1.0 01/05/18 01:36 98 Nasal Cannula 1.0 01/05/18 01:35 36.6 80 18 116/66 (83) 99 Nasal Cannula 1.5 01/05/18 00:36 96 Nasal Cannula 1.5 01/05/18 00:35 36.4 89 20 111/67 (82) 100 Nasal Cannula 2.0 01/04/18 23:35 36.5 78 20 107/60 (76) 98 Nasal Cannula 2.0 01/04/18 23:05 36.3 18 106/59 (75) 96 Nasal Cannula 2.0 01/04/18 23:05 96 Nasal Cannula 2.0 01/04/18 22:35 98 Nasal Cannula 2.0 01/04/18 22:35 36.5 73 16 106/50 (68) 98 Nasal Cannula 2.0 01/04/18 22:00 36.7 88 16 110/57 (70) 100 Nasal Cannula 2 01/04/18 21:46 68 9 113/61 100 01/04/18 21:46 68 9 01/04/18 21:41 73 21 01/04/18 21:41 73 21 106/58 99 01/04/18 21:37 124/53 01/04/18 21:36 76 13 01/04/18 21:36 76 13 100 01/04/18 21:31 88 11 138/75 99 01/04/18 21:31 87 11 01/04/18 21:29 36.7 75 16 108/60 (79) 96 Oxymask 10 01/04/18 21:26 84 15 133/77 100 01/04/18 21:26 85 15 01/04/18 21:22 108/60 01/04/18 21:21 69 2 01/04/18 21:21 68 2 84 01/04/18 16:25 36.6 84 16 115/75 100 Room Air 01/04/18 16:20 36.6 84 115/75 (88) 100 Room Air 01/04/18 16:20 100 Room Air Physical Exam General Appearance: mild distress Respiratory/Chest: lungs clear Abdomen: non tender, + abnormal bowel sounds Incision Description: Clean, Dry & Intact Extremities: no pedal edema, no calf tenderness Laboratory Results Last 24 Hours Test 01/04/18 21:28 01/05/18 07:09 Hemoglobin 8.8 g/dL 7.4 g/dL White Blood Count 14.17 K/uL Red Blood Count 2.47 M/uL Hematocrit 21.7 % Mean Corpuscular Volume 87.9 fL Mean Corpuscular Hemoglobin 30.0 pg Mean Corpuscular Hemoglobin Concent 34.1 g/dl Platelet Count 187 K/uL Mean Platelet Volume 8.9 fL Neutrophils (%) (Auto) 89.6 % Lymphocytes (%) (Auto) 4.0 % Monocytes (%) (Auto) 6.1 % Eosinophils (%) (Auto) 0.0 % Basophils (%) (Auto) 0.0 % Neutrophils # (Auto) 12.69 K/uL Lymphocytes # (Auto) 0.57 K/uL Monocytes # (Auto) 0.87 K/uL Eosinophils # (Auto) 0.00 K/uL Basophils # (Auto) 0.00 K/uL RDW Standard Deviation 45.7 fL RDW Coefficient of Variation 14.1 % Immature Granulocyte % (Auto) 0.3 % Immature Granulocyte # (Auto) 0.04 K/uL Red Blood Cell Morphology Unremarkable Assessment and Plan Problem List Medical Problems: (1) Anemia Status: Acute (2) Inguinal lymphadenopathy Status: Acute (3) Pelvic pain Status: Acute (4) Pelvic pain Status: Acute (5) Right groin pain Status: Acute Post-Op Day#: 1 Continue Routine Care: hypo active bowel sounds
[2018-01-05] MEDS ORDERED: PROMETHAZINE HCL INJ 25 MG in SODIUM CHLORIDE 0.9% 50ML 50 ML IV PRN (09:45)
[2018-01-05 13:11] LABS: HEMATOCRIT 21.7 % (37-47); HEMOGLOBIN 7.4 g/dL (12.0-16.0)
--- NOTE | 2018-01-05 15:29 | Progress Note ---
Subjective January 05, 2018. Subjective conversation w/ patient Ambulation: limited ambulation Voiding: no voiding problems Objective Vital Signs Date Time Temp Pulse Resp B/P (MAP) Pulse Ox O2 Delivery O2 Flow Rate FiO2 01/05/18 11:30 37.1 76 16 103/61 (75) 97 Room Air 01/05/18 08:00 97 Room Air 01/05/18 08:00 37.0 82 16 107/62 (77) 97 Room Air 01/05/18 04:00 36.8 78 18 114/72 (86) 96 Room Air 01/05/18 02:41 99 Room Air 01/05/18 02:40 100 Nasal Cannula 1.0 01/05/18 01:36 98 Nasal Cannula 1.0 01/05/18 01:35 36.6 80 18 116/66 (83) 99 Nasal Cannula 1.5 01/05/18 00:36 96 Nasal Cannula 1.5 01/05/18 00:35 36.4 89 20 111/67 (82) 100 Nasal Cannula 2.0 01/04/18 23:35 36.5 78 20 107/60 (76) 98 Nasal Cannula 2.0 01/04/18 23:05 36.3 18 106/59 (75) 96 Nasal Cannula 2.0 01/04/18 23:05 96 Nasal Cannula 2.0 01/04/18 22:35 98 Nasal Cannula 2.0 01/04/18 22:35 36.5 73 16 106/50 (68) 98 Nasal Cannula 2.0 01/04/18 22:00 36.7 88 16 110/57 (70) 100 Nasal Cannula 2 01/04/18 21:46 68 9 113/61 100 01/04/18 21:46 68 9 01/04/18 21:41 73 21 01/04/18 21:41 73 21 106/58 99 01/04/18 21:37 124/53 01/04/18 21:36 76 13 01/04/18 21:36 76 13 100 01/04/18 21:31 88 11 138/75 99 01/04/18 21:31 87 11 01/04/18 21:29 36.7 75 16 108/60 (79) 96 Oxymask 10 01/04/18 21:26 84 15 133/77 100 01/04/18 21:26 85 15 01/04/18 21:22 108/60 01/04/18 21:21 69 2 01/04/18 21:21 68 2 84 01/04/18 16:25 36.6 84 16 115/75 100 Room Air 01/04/18 16:20 36.6 84 115/75 (88) 100 Room Air 01/04/18 16:20 100 Room Air Laboratory Results Last 24 Hours Test 01/04/18 21:28 01/05/18 07:09 01/05/18 12:56 Hemoglobin 8.8 g/dL 7.4 g/dL 7.4 g/dL White Blood Count 14.17 K/uL Red Blood Count 2.47 M/uL Hematocrit 21.7 % 21.7 % Mean Corpuscular Volume 87.9 fL Mean Corpuscular Hemoglobin 30.0 pg Mean Corpuscular Hemoglobin Concent 34.1 g/dl Platelet Count 187 K/uL Mean Platelet Volume 8.9 fL Neutrophils (%) (Auto) 89.6 % Lymphocytes (%) (Auto) 4.0 % Monocytes (%) (Auto) 6.1 % Eosinophils (%) (Auto) 0.0 % Basophils (%) (Auto) 0.0 % Neutrophils # (Auto) 12.69 K/uL Lymphocytes # (Auto) 0.57 K/uL Monocytes # (Auto) 0.87 K/uL Eosinophils # (Auto) 0.00 K/uL Basophils # (Auto) 0.00 K/uL RDW Standard Deviation 45.7 fL RDW Coefficient of Variation 14.1 % Immature Granulocyte % (Auto) 0.3 % Immature Granulocyte # (Auto) 0.04 K/uL Red Blood Cell Morphology Unremarkable Assessment and Plan Problem List Medical Problems: (1) Anemia Status: Acute (2) Inguinal lymphadenopathy Status: Acute (3) Pelvic pain Status: Acute (4) Pelvic pain Status: Acute (5) Right groin pain Status: Acute Post-Op Day#: 1 Continue Routine Care: patient has symptoms of dizziness lethargy and headache secondary to anemia
--- NOTE | 2018-01-05 18:31 | Progress Note ---
Subjective January 05, 2018. Subjective Voiding: no voiding problems Objective Vital Signs Date Time Temp Pulse Resp B/P (MAP) Pulse Ox O2 Delivery O2 Flow Rate FiO2 01/05/18 18:20 37.5 86 16 111/66 97 01/05/18 17:45 37.2 92 18 113/70 98 01/05/18 17:15 36.9 87 18 121/74 97 01/05/18 16:45 37.7 82 16 115/72 98 01/05/18 16:15 37.6 84 16 116/73 (87) 99 Room Air 01/05/18 16:15 37.6 84 16 116/73 99 01/05/18 16:00 37.8 85 18 121/74 99 01/05/18 15:45 38.2 85 16 117/73 98 01/05/18 15:40 98 Room Air 01/05/18 11:30 37.1 76 16 103/61 (75) 97 Room Air 01/05/18 08:00 97 Room Air 01/05/18 08:00 37.0 82 16 107/62 (77) 97 Room Air 01/05/18 04:00 36.8 78 18 114/72 (86) 96 Room Air 01/05/18 02:41 99 Room Air 01/05/18 02:40 100 Nasal Cannula 1.0 01/05/18 01:36 98 Nasal Cannula 1.0 01/05/18 01:35 36.6 80 18 116/66 (83) 99 Nasal Cannula 1.5 01/05/18 00:36 96 Nasal Cannula 1.5 01/05/18 00:35 36.4 89 20 111/67 (82) 100 Nasal Cannula 2.0 01/04/18 23:35 36.5 78 20 107/60 (76) 98 Nasal Cannula 2.0 01/04/18 23:05 36.3 18 106/59 (75) 96 Nasal Cannula 2.0 01/04/18 23:05 96 Nasal Cannula 2.0 01/04/18 22:35 98 Nasal Cannula 2.0 01/04/18 22:35 36.5 73 16 106/50 (68) 98 Nasal Cannula 2.0 01/04/18 22:00 36.7 88 16 110/57 (70) 100 Nasal Cannula 2 01/04/18 21:46 68 9 113/61 100 01/04/18 21:46 68 9 01/04/18 21:41 73 21 01/04/18 21:41 73 21 106/58 99 01/04/18 21:37 124/53 01/04/18 21:36 76 13 01/04/18 21:36 76 13 100 01/04/18 21:31 88 11 138/75 99 01/04/18 21:31 87 11 01/04/18 21:29 36.7 75 16 108/60 (79) 96 Oxymask 10 01/04/18 21:26 84 15 133/77 100 01/04/18 21:26 85 15 01/04/18 21:22 108/60 01/04/18 21:21 69 2 01/04/18 21:21 68 2 84 Laboratory Results Last 24 Hours Test 01/04/18 21:28 01/05/18 07:09 01/05/18 12:56 Hemoglobin 8.8 g/dL 7.4 g/dL 7.4 g/dL White Blood Count 14.17 K/uL Red Blood Count 2.47 M/uL Hematocrit 21.7 % 21.7 % Mean Corpuscular Volume 87.9 fL Mean Corpuscular Hemoglobin 30.0 pg Mean Corpuscular Hemoglobin Concent 34.1 g/dl Platelet Count 187 K/uL Mean Platelet Volume 8.9 fL Neutrophils (%) (Auto) 89.6 % Lymphocytes (%) (Auto) 4.0 % Monocytes (%) (Auto) 6.1 % Eosinophils (%) (Auto) 0.0 % Basophils (%) (Auto) 0.0 % Neutrophils # (Auto) 12.69 K/uL Lymphocytes # (Auto) 0.57 K/uL Monocytes # (Auto) 0.87 K/uL Eosinophils # (Auto) 0.00 K/uL Basophils # (Auto) 0.00 K/uL RDW Standard Deviation 45.7 fL RDW Coefficient of Variation 14.1 % Immature Granulocyte % (Auto) 0.3 % Immature Granulocyte # (Auto) 0.04 K/uL Red Blood Cell Morphology Unremarkable Assessment and Plan Problem List Medical Problems: (1) Anemia Status: Acute (2) Inguinal lymphadenopathy Status: Acute (3) Pelvic pain Status: Acute (4) Pelvic pain Status: Acute (5) Right groin pain Status: Acute Post-Op Day#: 1 Continue Routine Care: symptoms have greatly improved after 1 unit of blood
[2018-01-06 03:30] VITALS: BP 107/68; PULSE 81; TEMP 36.8; O2SAT 97
[2018-01-06] MEDS: D5W AND LACTATED RINGERS 1,000 ML IV SCH (03:42)
[2018-01-06] MEDS: KETOROLAC TROMETHAMINE 30 MG/ML VIAL IV. PRN (03:42)
[2018-01-06 06:25] LABS: BASO % 0.2 %; BASO ABS # 0.02 K/uL (0-0.2); EOS % 0.7 %; EOS ABS # 0.06 K/uL (0-0.5); HEMATOCRIT 25.6 % (37-47); HEMOGLOBIN 8.7 g/dL (12.0-16.0); IG# 0.01 K/uL (0.00-0.02); LYMPH % 20.6 %; LYMPH ABS # 1.81 K/uL (1.2-3.4); MEAN CELL VOLUME 89.2 fL (80-100); MEAN CORPUSCULAR HEMOGLOBIN 30.3 pg (25-34); MONO % 9.7 %; MONO ABS # 0.85 K/uL (0.11-0.59); NEUT % 68.7 %; NEUT ABS # 6.02 K/uL (1.4-6.5); PLATELET COUNT 158 K/uL (130-400); RED CELL DISTRIBUTION WIDTH CV 14.6 % (11.5-14.5); RED CELL DISTRIBUTION WIDTH SD 47.4 fL (36.4-46.3); WHITE BLOOD COUNT 8.77 K/uL (4.8-10.8)
[2018-01-06 07:15] VITALS: BP 100/71; PULSE 90; TEMP 37.1; O2SAT 97
[2018-01-06] MEDS: CHECK SCOPOLAMINE PATCH PLACEMENT SCH ×2 (08:00→16:00)
[2018-01-06] MEDS: IBUPROFEN 600 MG TAB PO PRN ×4 (09:02→23:28)
[2018-01-06] MEDS: OXYCODONE/ACETAMINOPHEN 5-325 TAB PO PRN ×4 (10:01→23:29)
--- NOTE | 2018-01-06 10:02 | Progress Note ---
Subjective January 06, 2018. Subjective conversation w/ patient Ambulation: limited ambulation Voiding: no voiding problems Passing Gas: Yes Diet Tolerance: Regular Diet Lochia: Small Review of Systems Constitutional: + fever Objective Vital Signs Date Time Temp Pulse Resp B/P (MAP) Pulse Ox O2 Delivery O2 Flow Rate FiO2 01/06/18 07:15 97 Room Air 01/06/18 07:15 37.1 90 18 100/71 (81) 97 Room Air 01/06/18 03:30 36.8 81 18 107/68 (81) 97 Room Air 01/05/18 23:10 97 Room Air 01/05/18 23:10 36.7 80 16 106/66 (79) 97 Room Air 01/05/18 21:15 36.8 76 16 114/71 (85) 97 Room Air 01/05/18 19:50 37.2 91 16 114/73 100 01/05/18 19:50 37.2 91 16 114/73 (87) 100 Room Air 01/05/18 19:20 36.9 89 16 108/70 100 01/05/18 19:20 36.9 89 16 108/70 (83) 100 Room Air 01/05/18 18:50 37.0 86 18 138/71 (93) 100 Room Air 01/05/18 18:50 37.0 86 18 138/71 100 01/05/18 18:35 37.1 96 16 114/70 (85) 98 Room Air 01/05/18 18:20 37.5 86 16 111/66 97 01/05/18 17:45 37.2 92 18 113/70 98 01/05/18 17:15 36.9 87 18 121/74 97 01/05/18 16:45 37.7 82 16 115/72 98 01/05/18 16:15 37.6 84 16 116/73 (87) 99 Room Air 01/05/18 16:15 37.6 84 16 116/73 99 01/05/18 16:00 37.8 85 18 121/74 99 01/05/18 15:45 38.2 85 16 117/73 98 01/05/18 15:40 98 Room Air 01/05/18 11:30 37.1 76 16 103/61 (75) 97 Room Air Physical Exam General Appearance: WELL-APPEARING Respiratory/Chest: lungs clear Abdomen: normal bowel sounds, non tender Incision Description: Clean, Dry & Intact Extremities: no pedal edema, no calf tenderness Laboratory Results Last 24 Hours Test 01/05/18 12:56 01/06/18 06:18 Hemoglobin 7.4 g/dL 8.7 g/dL Hematocrit 21.7 % 25.6 % White Blood Count 8.77 K/uL Red Blood Count 2.87 M/uL Mean Corpuscular Volume 89.2 fL Mean Corpuscular Hemoglobin 30.3 pg Mean Corpuscular Hemoglobin Concent 34.0 g/dl Platelet Count 158 K/uL Mean Platelet Volume 9.0 fL Neutrophils (%) (Auto) 68.7 % Lymphocytes (%) (Auto) 20.6 % Monocytes (%) (Auto) 9.7 % Eosinophils (%) (Auto) 0.7 % Basophils (%) (Auto) 0.2 % Neutrophils # (Auto) 6.02 K/uL Lymphocytes # (Auto) 1.81 K/uL Monocytes # (Auto) 0.85 K/uL Eosinophils # (Auto) 0.06 K/uL Basophils # (Auto) 0.02 K/uL RDW Standard Deviation 47.4 fL RDW Coefficient of Variation 14.6 % Immature Granulocyte % (Auto) 0.1 % Immature Granulocyte # (Auto) 0.01 K/uL Red Blood Cell Morphology Unremarkable Assessment and Plan Problem List Medical Problems: (1) Anemia Status: Acute (2) Inguinal lymphadenopathy Status: Acute (3) Pelvic pain Status: Acute (4) Pelvic pain Status: Acute (5) Right groin pain Status: Acute Post-Op Day#: 2 Continue Routine Care: jone drain with safety pin removed from vagina good bowel sounds nausea and dizzyness has resolved
[2018-01-06 11:55] VITALS: BP 107/69; PULSE 85; TEMP 37.1; O2SAT 97
[2018-01-06 15:40] VITALS: BP 115/67; PULSE 89; TEMP 37; O2SAT 100
[2018-01-06] MEDS: DOCUSATE SODIUM 100 MG CAP PO PRN (15:49)
[2018-01-06] MEDS: FERROUS SULFATE 325 MG TAB PO SCH (17:31)
[2018-01-06 23:20] VITALS: BP 103/66; PULSE 71; TEMP 36.6; O2SAT 99
[2018-01-07] MEDS: CHECK SCOPOLAMINE PATCH PLACEMENT SCH ×3 (08:00→16:00)
[2018-01-07] MEDS: IBUPROFEN 600 MG TAB PO PRN ×3 (08:25→22:39)
[2018-01-07] MEDS: OXYCODONE/ACETAMINOPHEN 5-325 TAB PO PRN ×3 (08:26→18:24)
[2018-01-07] MEDS: FERROUS SULFATE 325 MG TAB PO SCH ×2 (08:30→17:30)
[2018-01-07] MEDS: DOCUSATE SODIUM 100 MG CAP PO PRN (08:31)
[2018-01-07 08:40] VITALS: BP 107/65; PULSE 79; TEMP 36.5; O2SAT 98
--- NOTE | 2018-01-07 10:31 | Progress Note ---
Subjective January 07, 2018. Subjective conversation w/ patient Ambulation: ambulating normally Voiding: no voiding problems Passing Gas: Yes Diet Tolerance: Regular Diet Lochia: Small Review of Systems Constitutional: + fever Objective Vital Signs Date Time Temp Pulse Resp B/P (MAP) Pulse Ox O2 Delivery O2 Flow Rate FiO2 01/06/18 23:20 36.6 71 16 103/66 (78) 99 Room Air 01/06/18 23:20 99 Room Air 01/06/18 15:40 100 Room Air 01/06/18 15:40 37.0 89 18 115/67 (83) 100 Room Air 01/06/18 11:55 37.1 85 18 107/69 (82) 97 Room Air Physical Exam General Appearance: mild distress Abdomen: normal bowel sounds, non tender Incision Description: Clean, Dry & Intact Extremities: no pedal edema, no calf tenderness Assessment and Plan Problem List Medical Problems: (1) Anemia Status: Acute (2) Inguinal lymphadenopathy Status: Acute (3) Pelvic pain Status: Acute (4) Pelvic pain Status: Acute (5) Right groin pain Status: Acute Post-Op Day#: 3 Continue Routine Care: patients pain is not under control Hgb pending
[2018-01-07 10:49] LABS: HEMATOCRIT 28.5 % (37-47); HEMOGLOBIN 9.8 g/dL (12.0-16.0)
[2018-01-07 16:02] VITALS: BP 110/61; PULSE 75; TEMP 36.8; O2SAT 100
[2018-01-07] MEDS: ONDANSETRON INJ 2 MG/ML 2 ML VIAL IV PRN (18:09)
[2018-01-07 19:35] VITALS: BP 102/66; PULSE 63; TEMP 36.9; O2SAT 98
[2018-01-08] MEDS: HYDROCODONE/ACETAMIN 5/325MG TAB PO PRN ×3 (00:54→12:32)
[2018-01-08 00:55] VITALS: BP 105/62; PULSE 70; TEMP 36.5
[2018-01-08] MEDS: IBUPROFEN 600 MG TAB PO PRN ×4 (02:16→14:30)
[2018-01-08 05:00] VITALS: BP 96/57; PULSE 76; TEMP 36.8
--- NOTE | 2018-01-08 07:39 | Progress Note ---
Subjective January 08, 2018. Subjective conversation w/ patient Ambulation: ambulating normally Voiding: no voiding problems Passing Gas: Yes Diet Tolerance: Regular Diet Lochia: Small Review of Systems Constitutional: + fever Objective Vital Signs Date Time Temp Pulse Resp B/P (MAP) Pulse Ox O2 Delivery O2 Flow Rate FiO2 01/08/18 05:00 36.8 76 16 96/57 (70) Room Air 01/08/18 00:55 Room Air 01/08/18 00:55 36.5 70 18 105/62 (76) Room Air 01/07/18 19:35 36.9 63 20 102/66 (78) 98 Room Air 01/07/18 16:02 36.8 75 20 110/61 (77) 100 Room Air 01/07/18 16:02 Room Air 01/07/18 08:40 36.5 79 16 107/65 (79) 98 Room Air 01/07/18 08:40 Room Air Physical Exam General Appearance: WELL-APPEARING Respiratory/Chest: lungs clear Abdomen: normal bowel sounds, non tender Incision Description: Clean, Dry & Intact Extremities: no pedal edema, no calf tenderness Laboratory Results Last 24 Hours Test 01/07/18 10:39 Hemoglobin 9.8 g/dL Hematocrit 28.5 % Assessment and Plan Problem List Medical Problems: (1) Anemia Status: Acute (2) Inguinal lymphadenopathy Status: Acute (3) Pelvic pain Status: Acute (4) Pelvic pain Status: Acute (5) Right groin pain Status: Acute Post-Op Day#: 4 Continue Routine Care: pain is controlled with vicodan
--- NOTE | 2018-01-08 07:42 | Discharge Instructions ---
Discharge Instructions Date of Service January 08, 2018. Admission Reason for Admission: Vaginal Bleeding Discharge Discharge Diagnosis / Problem: anemia heavy vaginal bleeding Discharge Goals Goal(s): Routine recovery after surgery Activity Recommendations Activity Limitations: as noted below ACTIVITY RECOMMENDATIONS: * Gradual return to full activity over next 2-3 weeks. * No heavy lifting over next 2-3 weeks. * Nothing in the vagina (no intercourse, tampons, or douching) for 4 weeks * You may walk up and down steps as necessary. * You may drive a car in 2 weeks. * Hot shower or tub bath daily. SPECIAL CARE INSTRUCTIONS: * Check temperature twice daily for one week. Report any elevation over 100.4 degrees Fahrenheit (38.0 degrees Celsius). * Call your doctor if bleeding becomes heavier than the heaviest part of your period - saturating a sanitary pad within an hour. * If you develop a red, hard, warm swollen lump on your incision or if you develop any separation of or drainage from your incision, notify your doctor. . Current Hospital Diet ACTIVITY RECOMMENDATIONS: * Gradual return to full activity over next 2-3 weeks. * No heavy lifting over next 2-3 weeks. * Nothing in the vagina (no intercourse, tampons, or douching) for 4 weeks * You may walk up and down steps as necessary. * You may drive a car in 2 weeks. * Hot shower or tub bath daily. SPECIAL CARE INSTRUCTIONS: * Check temperature twice daily for one week. Report any elevation over 100.4 degrees Fahrenheit (38.0 degrees Celsius). * Call your doctor if bleeding becomes heavier than the heaviest part of your period - saturating a sanitary pad within an hour. * If you develop a red, hard, warm swollen lump on your incision or if you develop any separation of or drainage from your incision, notify your doctor. Patient's current hospital diet: Regular Diet Discharge Diet Recommended Diet: Regular Diet Procedures Procedures Performed: Total Abdominal Hysterectomy Pending Studies Studies pending at discharge: no Medical Emergencies . Who to Call and When: Medical Emergencies: If at any time you feel your situation is an emergency, please call 911 immediately. . Non-Emergent Contact Non-Emergency issues call your: Sky [facility] Call Non-Emergent contact if: temperature is above 100.5 . . "Provider Documentation" section prepared by Oj Burnett. .
[2018-01-08 08:00] VITALS: BP 99/61; PULSE 80; TEMP 36.9; O2SAT 98
[2018-01-08] MEDS: CHECK SCOPOLAMINE PATCH PLACEMENT SCH ×2 (08:00)
[2018-01-08] MEDS: FERROUS SULFATE 325 MG TAB PO SCH (08:11)
[2018-01-08] MEDS: DOCUSATE SODIUM 100 MG CAP PO PRN (08:12)
[2018-01-08 09:53] VITALS: BP 99/61; PULSE 80; TEMP 36.9; O2SAT 98
--- NOTE | 2018-01-08 10:21 | DISCHARGE SUMMARY ---
Aurora has been followed for problems with irregular prolonged bleeding, heavy at times. She was previously being seen in [place], [place]. She transferred to my care about a month ago. I reviewed her records in the office. I repeated her ultrasound. Her ultrasound showed an enlarged uterus, highly suggested of adenomyosis and a posterior fibroid, which distorted the endometrial cavity. We discussed different options to control the bleeding and we were planning on an outpatient D and C, endometrial ablation; however, she started bleeding on Thursday. She came into the office on Thursday. She was passing large clots. She appeared pale and she appeared symptomatic from her bleeding. She was sent to the Emergency Room where a stat hemoglobin revealed a hemoglobin of 9.4. At this time, due to the extent of bleeding, the right she was bleeding at the time and the concerns over the conservative procedures failing due to the fibroids and adenomyosis. She was taken to the OR where in an emergency hysterectomy was done, preservation of the ovaries. We did not transfuse her. Postoperatively; however, she became very symptomatic. Her hemoglobin dropped to 7.4. We had trouble getting her out of bed and she had a bad headache, she had nausea, so we diagnosed her with symptoms secondary to acute anemia and gave her 2 units of blood. Her hemoglobin then came up to 8.7. She did remarkably well. She was able to ambulate. She was able to go to the bathroom. Her nausea disappeared; however, we did have trouble controlling her pain and discomfort over the next several days. We had to switch her pain medications around several times. Also, she had a postoperative ileus lasted for about 2 days, so on the 4th postoperative day her pain was finally controlled her nausea had resolved. She did still have some headache which we felt was due to anemia and her last hemoglobin, which was checked on 01/07/2018 had come up to 9.8. She was discharged with the usual instructions to call if she had a temperature over 100, call if she had any heavy bleeding, which would be soaking a pad an hour for 2 hours. Return to the office for removal of val and to give us call if she had any problems.
--- NOTE | 2018-01-15 07:58 | EDITING REQUIRED CODING QUERY ---
ANEMIA To promote full compliance with coding requirements relating to patient care, physician participation is requested in all cases of funeral pre arrangement specialist uncertainty. Please assist us with the question(s) below: Coding Question(s): The record reflects the following clinical findings: If these findings are indicative of anemia, please specify the known or suspected type by placing an "X" within the parenthesis (x). If other, please document type. Examples are: (x ) Acute blood loss anemia ( ) Acute Postoperative blood loss anemia ( ) Acute postoperative anemia due to dilutional fluids ( ) Chronic blood loss anemia ( ) Anemia of chronic disease ( ) Aplastic anemia ( ) Anemia due to renal disease ( ) Anemia in neoplastic disease ( ) Iron deficient anemia ( ) Anemia, unspecified or other ( ) Other: (please specify) ( ) Unable to determine Thank you Ruth King
--- NOTE | 2018-01-15 07:59 | EDITING REQUIRED CODING QUERY ---
Your help is needed for correct coding of this account; please clarify if the patients Post-operative Ileus was: (x ) expected out of the surgery ( ) unexpected complication from the surgery ( )other please specify Thank you Ruth King
== END 2018-01-08 14:40 | disposition home or self-care (01) | DRG 742 ==
LOC: C.MS4N 16:07 → OBSVTOIN 21:22 → C.OBG 01-06 13:22
PROVIDERS: ADMIT Obstetrics & Gynecology; ATTEND Obstetrics & Gynecology
PROC: 0UTC0ZZ Resection of Cervix, Open Approach (ICD-10-PCS; principal; 2018-01-04 18:30)
PROC: 0UT90ZZ Resection of Uterus, Open Approach (ICD-10-PCS; principal; 2018-01-04 18:30)
DX: D25.9 Leiomyoma of uterus, unspecified (principal); D62 Acute posthemorrhagic anemia; N80.0 Endometriosis of uterus; Z87.59 Personal history of other complications of pregnancy, childbirth and the puerperium; Z88.2 Allergy status to sulfonamides

== ENCOUNTER → 2018-01-04 | Outpatient (CLI) | payer OTHER ==
[~2018-01-04] MED LIST changes: -CEFD1CAP14 PO; -DOXY100C PO
[2018-01-04 15:02] LABS: HEMATOCRIT 26.9 % (37-47); HEMOGLOBIN 9.4 g/dL (12.0-16.0)
--- NOTE | 2018-01-04 16:08 | HISTORY & PHYSICAL EXAMINATION ---
DATE OF ADMISSION: 01/04/2018 CHIEF COMPLAINT: Heavy vaginal bleeding with clotting, weakness, and dizziness on standing. HISTORY OF PRESENT ILLNESS: The patient is a 42-year-old 4, para 2. She has had 2 spontaneous ABs. She has had a 2-year long history of heavy vaginal bleeding with clotting. She was originally followed by some doctors in [place], [place]. They tried a Mirena IUD, which they inserted in July 2017 and it had to be removed in September 2017 due to complications with infection and continued bleeding. She had a transvaginal ultrasound in my office on 12/29/2017 which showed a fibroid about 2 cm impinging on the endometrial canal and she also had a generalized enlargement of the uterus which was suggestive of adenomyosis. She has been bleeding for a month; however, it just started to be heavy on 12/31/2017 and she began to soak a pad in under an hour, passing large clots. She tried decreasing her activity. By Thursday, she was having some dizziness and nausea on standing. She called the office. She was seen in the office. A speculum exam revealed heavy vaginal bleeding, clothes were soaked. She was passing large clots. I sent her over for an emergency hemoglobin and hematocrit. Her hemoglobin was 9.4, hematocrit was 26.9. We discussed options and she is going to be admitted for total abdominal hysterectomy with preservation of ovaries due to heavy vaginal bleeding and symptomatic anemia. PAST MEDICAL HISTORY: She has 2 children in good health. ALLERGIES: SHE HAS A SERIOUS ALLERGIC REACTION TO SULFA WHICH CAUSES SHORTNESS OF BREATH. PAST SURGICAL HISTORY: She had a D and E for one of her miscarriages and she had a vein removed in her leg. MEDICAL HISTORY: No history of rheumatic fever, heart disease, heart murmur, diabetes, tuberculosis. SOCIAL HISTORY: No smoking. No alcohol intake. Works at [employer]. FAMILY HISTORY: Mother 64, in good health. Father 64, in good health. She has got 2 sisters and 1 brother in good health. REVIEW OF SYSTEMS: She does get migraine headaches which are worse with this heavy vaginal bleeding. No history of frequent or severe ear infections. PHYSICAL EXAMINATION: GENERAL: A well-developed, well-nourished white female, pale and weak in appearance. HEART: Had a regular rhythm. CHEST: Clear to auscultation and percussion. BREAST EXAMINATION: Normal. ABDOMEN: Soft and nontender. PELVIC EXAMINATION: Revealed a top normal-sized uterus. Speculum exam revealed heavy vaginal bleeding with clotting, clothes soaked. MUSCULOSKELETAL EXAMINATION: Revealed no calf tenderness. IMPRESSIONS OF THIS CASE: Symptomatic anemia, fibroid uterus, suspected adenomyosis, and a long history of heavy vaginal bleeding unresponsive to conservative therapy.
== END | disposition home or self-care (01) ==
LOC: C.LAB 14:15
PROVIDERS: ATTEND Obstetrics & Gynecology
DX: N92.0 Excessive and frequent menstruation with regular cycle (principal); N94.6 Dysmenorrhea, unspecified